=== PATIENT | male | born 1975 | race Caucasian/White ===

== ENCOUNTER → 2017-02-09 | Outpatient (CLI) | payer OTHER ==
[2017-02-09 08:50] LABS: BLOOD GAS BASE EXCESS -1.7 mmol/L (-2-2); BLOOD GAS CARBOXYHEMOGLOBIN 1.4 % (0-4); BLOOD GAS HCO3 22 mmol/L (22-26); BLOOD GAS METHEMOGLOBIN 1.1 % (0-2); BLOOD GAS O2 HGB SATURATION 94 % (90-100); BLOOD GAS OXYGEN CONTENT 20.5 Vol % (12.0-20.0); BLOOD GAS PCO2 37 mmHg (38-42); BLOOD GAS PO2 83 mmHg (61-120); BLOOD GAS TOTAL HGB 15.5 G/DL (12.0-16.0); CRITICAL VALUE NO; DRAW SITE RT RADIAL; FIO2 21 %; NUMBER OF ARTERIAL PUNCTURES 1; STAT NO; TEMP CORR TO 98.6; ULNAR PULSE PRESENT
--- NOTE | 2017-02-16 10:10 | RSPPFT ---
DATE OF PROCEDURE: 02/09/17 COMMENTS: Spirometry with FVC of 3.8 predicted 5.7, FEV1 of 2.6 predicted 4.3, FEV1/FVC ratio at 67% predicted 74%. Post-bronchodilator FVC increases to 4.4 and FEV1 to 2.9. Lung volumes show a minimal decrease in the TLC. DLCO is within the predicted range. IMPRESSION: On the basis of the above, patient has mild obstructive lung defect with responsiveness to acutely inhaled bronchodilator treatment.
== END ==
LOC: HRSP 08:01
PROVIDERS: ATTEND Internal Medicine Pulmonary Disease
DX: J45.909 Unspecified asthma, uncomplicated (principal)
CPT/HCPCS: 36600; 82805; 94060; 94620; 94726; 94729